=== PATIENT | female | born 1965 | race Caucasian/White ===

== ENCOUNTER → 2017-05-14 | Outpatient (CLI) | payer OTHER | END | disposition home or self-care (01) | LOC: GMA 10:50 | PROVIDERS: ATTEND Nurse Practitioner Family | DX: E03.9 Hypothyroidism, unspecified (principal) ==

== ENCOUNTER → 2017-08-09 | Outpatient (CLI) | payer SELFPAY | END | disposition home or self-care (01) | LOC: MAMMO 10:30 | PROVIDERS: ATTEND Family Medicine | DX: Z12.31 Encounter for screening mammogram for malignant neoplasm of breast (principal) | CPT/HCPCS: 77063; G0202 ==

== ENCOUNTER → 2017-09-22 | Outpatient (CLI) | payer OTHER, SELFPAY ==
--- NOTE | 2017-09-24 10:14 | MRI ---
MRI left shoulder without contrast INDICATION: Shoulder pain limited range of motion date of onset not specified TECHNIQUE: Noncontrast MR imaging left shoulder standard protocol FINDINGS: Long head bicep is intact. Subscapularis is intact. There is mild osteoarthrosis of the AC joint with asymmetric edema distal clavicle suggesting a mild degree of posttraumatic osteolysis. There is moderate subacromial and subdeltoid bursitis. Interstitial tendinopathy is noted involving the distal supraspinatus and infraspinatus tendons. No full-thickness detachment or retraction. There is a small degenerative tear posterior superior labrum without displacement. No advanced arthrosis of the glenohumeral joint. Mild type III morphology of the acromion. Mild grade 1 marbling of the rotator cuff muscle bellies. Asymmetric up to grade 2 fatty atrophy and volume loss of the teres minor. Minimal interstitial fissuring and tendinopathy of the distal subscapularis tendon on the sagittal fat suppressed images. No fracture or dislocation. 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 Degenerative nondisplaced posterior superior labral tear Electronically signed by: Maxwell Gottlieb MD 09/24/2017 10:13 AM SOURCING MANAGER
== END ==
LOC: MRI 11:09
PROVIDERS: ATTEND Family Medicine
DX: S43.402A Unspecified sprain of left shoulder joint, initial encounter (principal); M19.012 Primary osteoarthritis, left shoulder; M75.52 Bursitis of left shoulder

== ENCOUNTER → 2018-08-11 | Outpatient (CLI) | payer BC ==
--- NOTE | 2018-08-12 16:22 | MAM ---
EXAM DESCRIPTION: 3D Screening BILATERAL : Digital Mammography. CLINICAL HISTORY: 53 years Female SCREENING .. No complaints. No personal or family history of breast cancer. Postmenopausal approximately 8 years. No childbirth. Currently on HRT. Lifetime risk of developing breast cancer (Tyrer-Cuzick model)(%): 10.1. COMPARISON: Bilateral screening digital breast tomosynthesis 08/09/2017. TECHNIQUE: Bilateral CC and MLO projection full-field images, digital tomosynthesis mammographic technique. Bilateral digital 2-D full-field MLO images. CAD not utilized. FINDINGS: The breast parenchymal density pattern is: Heterogeneously dense breast tissue, which may obscure small masses. No skin thickening or nipple retraction. Right axillary lymph nodes. Bilateral solitary microcalcifications. No new focal, stellate mass or density, focal asymmetry , and no suspicious microcalcifications bilaterally. Stable mammograms compared to prior study. Taking into account, differences in mammographic technique. IMPRESSION: Benign exam. BIRAD CATEGORY: 2 BENIGN FINDINGS. RECOMMENDATIONS: FOLLOW UP: Routine digital bilateral screening, one year interval from August 2018. Written communication explaining the IMPRESSION and follow-up, will be mailed to the patient and referring health care provider. According to the [employer], yearly mammograms are recommended starting at age 40 and continuing as long as a woman is in good health. Any breast change noted on a breast self-exam should be reported promptly to the patient's healthcare provider. Breast MRI is recommended for women with an approximately 20-25% or greater lifetime risk of breast cancer, including women with a strong family history of breast or ovarian cancer and women who have been treated for Hodgkin's disease. A negative mammographic report should not delay tissue diagnosis in patients with significant clinical history or physical findings. Extremely dense breast tissue limits the sensitivity of digital mammography. Electronically signed by: Ted Garzon MD 08/12/2018 4:21 PM CDT
== END ==
LOC: MAMMO 10:11
PROVIDERS: ATTEND Family Medicine
DX: Z12.31 Encounter for screening mammogram for malignant neoplasm of breast (principal)

== ENCOUNTER → 2018-08-19 | Outpatient (CLI) | payer BC | LOC: GMAL 12:12 | PROVIDERS: ATTEND Nurse Practitioner Family | DX: K62.5 Hemorrhage of anus and rectum (principal) ==

== ENCOUNTER → 2019-08-14 | Outpatient (CLI) | payer BC ==
--- NOTE | 2019-08-17 09:31 | MAM ---
EXAM DESCRIPTION: 3D Screening BILATERAL : Digital Mammography. CLINICAL HISTORY: 54 years Female ANNUAL SCREENING . No complaints. No personal or family history of breast cancer. Menarche age 11. No childbirth. Postmenopausal 10+ years. Currently on HRT.. Lifetime risk of developing breast cancer (Tyrer-Cuzick model)(%): 9.1. COMPARISON: Bilateral screening digital breast tomosynthesis first August 2018 and July.. TECHNIQUE: Bilateral CC and MLO projection full-field images, digital tomosynthesis mammographic technique. Bilateral digital 2-D full-field MLO images. CAD not available for tomosynthesis or 2-D images. FINDINGS: The breast parenchymal density pattern is: Heterogeneously dense breast tissue, which may obscure small masses. No skin thickening or nipple retraction. Bilateral axillary lymph nodes. Bilateral solitary microcalcifications. No new focal, stellate mass or density, focal asymmetry , and no suspicious microcalcifications bilaterally. Stable mammograms compared to prior study. IMPRESSION: Benign exam. BIRAD CATEGORY: 2 BENIGN FINDINGS. RECOMMENDATIONS: FOLLOW UP: Routine digital bilateral mammographic screening, one year interval from August 2019. Written communication explaining the IMPRESSION and follow-up, will be mailed to the patient and referring health care provider. According to the [employer], yearly mammograms are recommended starting at age 40 and continuing as long as a woman is in good health. Any breast change noted on a breast self-exam should be reported promptly to the patient's healthcare provider. Breast MRI is recommended for women with an approximately 20-25% or greater lifetime risk of breast cancer, including women with a strong family history of breast or ovarian cancer and women who have been treated for Hodgkin's disease. A negative mammographic report should not delay tissue diagnosis in patients with significant clinical history or physical findings. Extremely dense breast tissue limits the sensitivity of digital mammography. Electronically signed by: Ted Garzon MD 08/16/2019 8:41 PM ROUTE DELIVERER
== END ==
LOC: MAMMO 10:00
PROVIDERS: ATTEND Family Medicine
DX: Z12.31 Encounter for screening mammogram for malignant neoplasm of breast (principal)

== ENCOUNTER → 2019-10-20 | Outpatient (CLI) | payer BC ==
--- NOTE | 2019-10-23 09:31 | US ---
EXAM DESCRIPTION: Pelvis Transvaginal: Ultrasound. CLINICAL HISTORY: 54 years Female IRREGULAR MENSTRUATION UNSPEC COMPARISON: Pelvic ultrasound January 2015. No report. TECHNIQUE: Endovaginal scanning; Haines-scale and Doppler modes. FINDINGS: Uterus 7.0 x 4.1 x 3.6 cm 53.9 mL.. Endometrial thickness is 5.2 mm. Myometrium appears heterogeneous. 1.3 x 0.9 x 1.0 cm echogenic fibroid on the anterior myometrium. Uterus not retroflexed. Cervix unremarkable.. Cul-de-sac contains no fluid. Bilateral ovaries were not seen. No adnexal mass or free fluid. IMPRESSION: 1. Uterus small in normal position. No endometrial thickening. 1.3 cm mass is most a fibroid. No abnormal fluid. 2. Ovaries not seen in the adnexa. No adnexal mass or free fluid. Bilateral ovaries seen on the prior study. Electronically signed by: Ted Garzon MD 10/23/2019 9:30 AM BAGGAGEMASTER
== END ==
LOC: US 09:42
PROVIDERS: ATTEND Nurse Practitioner Family
DX: N92.6 Irregular menstruation, unspecified (principal); N85.8 Other specified noninflammatory disorders of uterus

== ENCOUNTER 2020-03-25 20:27 | Emergency (ER) | payer BC ==
[2020-03-25] MEDS ORDERED: GLUCAGON INJ 1 MG VIAL IV ONE (20:50)
[2020-03-25] MEDS ORDERED: ONDANSETRON INJ 4 MG/2 ML VIAL IV ONE (20:50)
--- NOTE | 2020-03-25 20:53 | ED.PDOC ---
History of Present Illness - General Chief Complaint: General Stated Complaint: steak stuck in throat Time Seen by Provider: 03/25/20 20:50 Additional Information: 54 female presents to the ER after she around 7 PM was eating a steak, and he f eels like the steak got stuck in her esophagus, ever since then she has been able to make tolerate some fluid, but she is bleeding quite a lot, patient said that a few years ago she had the same episode, she went on to the morning and she ended up having some issues with her esophagus, denies fever chills denies chest pain, Patient denies drug denies cigarettes but admits social drinker She is able to be Nexium which is not taking it and she does have an established beamster - History of Present Illness Timing/Duration: other - 7 PM Improving Factors: nothing Worsening Factors: nothing Associated Symptoms: nausea/vomiting Allergies/Adverse Reactions: Allergies NO KNOWN ALLERGY Allergy (Verified 03/25/20 20:46) Home Medications: Ambulatory Orders Ondansetron Odt [Zofran ODT] 4 mg PO Q6HR #20 tab 03/25/20 Review of Systems - Review of Systems Constitutional: States: no symptoms reported EENTM: States: no symptoms reported Respiratory: States: no symptoms reported Cardiology: States: no symptoms reported Gastrointestinal/Abdominal: States: no symptoms reported Genitourinary: States: no symptoms reported Skin: States: no symptoms reported Neurological: States: no symptoms reported Endocrine: States: no symptoms reported Hematologic/Lymphatic: States: no symptoms reported Physical Exam - Physical Exam General Appearance: Alert, Well Developed, Well Groomed, Well Hydrated, Well Nourished Eye Exam: bilateral normal Ears, Nose, Throat: hearing grossly normal, normal ENT inspection, normal pharynx, other - No trismus no drooling able to speak in long complete sentences and no stridor Neck: non-tender, supple, normal inspection Respiratory: chest non-tender, lungs clear, normal breath sounds, no respiratory distress, no accessory muscle use Cardiovascular/Chest: normal peripheral pulses, regular rate, rhythm, no edema, no gallop, no JVD, no murmur Peripheral Pulses: radial,right: 2+, radial,left: 2+ Extremity: normal range of motion, non-tender Neurologic: supervisor canvas products II-XII nml as tested, no motor/sensory deficits, alert Skin Exam: normal color Lymphatic: no adenopathy Progress - Progress Progress: Patient received a dose of glucagon with Zofran, and after an hour of observation, patient is able to tolerate fluids, and is maintaining her secretions better, I did offer to the patient that even if she still feels like there is something stuck in the esophagus that my plan was to transfer her to a higher level of care for a gastroenterology evaluation and endoscopy procedure, patient said that she feels a lot better is maintaining her secretions, and is able to tolerate soda patient stated that she prefers to go home that she will call her beamster in the morning To the patient that she is more than welcome to come back to the ER if you change your mind, at this point patient has no respiratory distress and does not appear to have any airway compromise 03/25/20 23:09 Departure - Departure Clinical Impression: Esophageal obstruction due to food impaction Disposition: Discharge to Home or Self Care Condition: Fair Departure Forms: ED Discharge - Pt. Copy, Patient Portal Self Enrollment Instructions: Food Obstruction Diet: full liquid diet Referrals: Yoan Sheldon III, MD [Primary Care Provider] - 1-2 Weeks Prescriptions: Ondansetron Odt [Zofran ODT] 4 mg PO Q6HR #20 tab Home Medications: Ambulatory Orders Ondansetron Odt [Zofran ODT] 4 mg PO Q6HR #20 tab 03/25/20 Additional Instructions: follow beamster soon as possible
--- NOTE | 2020-03-25 21:10 | RAD ---
EXAM DESCRIPTION: XR NECK, SOFT TISSUE CLINICAL HISTORY: steak stuck in throat TECHNIQUE: 2 views of the soft tissues of the neck were submitted. COMPARISON: None available for comparison FINDINGS: Epiglottis: Unremarkable Trachea: No evidence of steepling of the tracheal air column. Bones: Intact Lung apices: Clear IMPRESSION: Patent airway. No focal abnormality. Electronically signed by: Taisha Pineda MD 03/25/2020 9:09 PM CDT
[2020-03-25 23:22] VITALS: BP 149/93; TEMP 98.5; O2SAT 98
== END 2020-03-25 23:23 | disposition home or self-care (01) ==
LOC: ER 20:27
DX: T18.128A Food in esophagus causing other injury, initial encounter (principal); Y92.9 Unspecified place or not applicable
CPT/HCPCS: 70360; J1610; J2405

== ENCOUNTER → 2020-08-20 | Outpatient (CLI) | payer BC ==
--- NOTE | 2020-08-22 10:55 | MAM ---
EXAM DESCRIPTION: 3D Screening BILATERAL : Digital Mammography. CLINICAL HISTORY: 55 years Female ANNUAL SCREENING . No complaints and no family history breast cancer. In [place] age 11. No childbirth. Menopause age 46. HRT less than 5 years ago.. Lifetime risk of developing breast cancer (Tyrer-Cuzick model)(%): 8.9. COMPARISON: Bilateral screening digital breast tomosynthesis August 2019 and August 2018.. TECHNIQUE: Bilateral CC and MLO projection full-field images, digital tomosynthesis mammographic technique. Bilateral digital 2-D full-field MLO images. CAD available for 2-D images. FINDINGS: The breast parenchymal density pattern is: Heterogeneously dense breast tissue, which may obscure small masses. No skin thickening or nipple retraction. Axillary nodes. Solitary microcalcifications. No new focal, stellate mass or density, focal asymmetry , and no suspicious microcalcifications bilaterally. Stable mammograms compared to prior study. IMPRESSION: Benign exam. BIRAD CATEGORY: 2 BENIGN FINDINGS. RECOMMENDATIONS: FOLLOW UP: Routine digital bilateral mammographic screening, one year interval from August 2020. Written communication explaining the IMPRESSION and follow-up, will be mailed to the patient and referring health care provider. According to the [employer], yearly mammograms are recommended starting at age 40 and continuing as long as a woman is in good health. Any breast change noted on a breast self-exam should be reported promptly to the patient's healthcare provider. Breast MRI is recommended for women with an approximately 20-25% or greater lifetime risk of breast cancer, including women with a strong family history of breast or ovarian cancer and women who have been treated for Hodgkin's disease. A negative mammographic report should not delay tissue diagnosis in patients with significant clinical history or physical findings. Extremely dense breast tissue limits the sensitivity of digital mammography. Electronically signed by: Ted Garzon MD 08/22/2020 10:54 AM CUT OUT OPERATOR
== END ==
LOC: MAMMO 14:30
PROVIDERS: ATTEND Family Medicine
DX: Z12.31 Encounter for screening mammogram for malignant neoplasm of breast (principal)